=== PATIENT | male | born 1985 | race African-American/Black ===

== ENCOUNTER 2017-05-13 14:28 | Emergency (ER) | payer OTHER ==
[~2017-05-13] VITALS: Ht 170.2 cm; Wt 113.4 kg
[~2017-05-13 14:28] MED LIST: BUTALB-APAP-CA1 EACH PO; NEXIUM40 MG PO; NORVASC5 MG PO
[2017-05-13 15:16] LABS: ABSOLUTE NEUTROPHILS 6.8 thou/uL (1.4-8.2); BASOPHILS 0.5 % (0.0-2.0); EOSINOPHILS 3.6 % (0.0-3.0); HEMATOCRIT 45.3 % (42.0-52.0); HEMOGLOBIN 15.1 gm/dL (14.0-18.0); LYMPHOCYTES 24.5 % (24.0-44.0); MCH 28.9 pg (26.0-34.0); MCHC 33.4 g/dL (28.0-37.0); MCV 86.5 fL (80.0-100.0); MONOCYTES 6.6 % (1.0-8.0); PLATELET COUNT 339 thou/uL (150-400); POLYS 64.8 % (36.0-66.0); RBC 5.23 mil/uL (4.50-6.00); RDW 14.3 % (10.5-14.5); WBC 10.4 thou/uL (4.0-11.0)
[2017-05-13 15:18] LABS: MANUAL DIFF NO
[2017-05-13 15:29] LABS: CALCIUM 8.8 mg/dL (8.5-10.1); CREATININE 1.4 mg/dL (0.7-1.3); POTASSIUM 3.6 mmol/L (3.5-5.1)
[2017-05-13 15:35] LABS: URINE BILIRUBIN NEGATIVE (Negative); URINE BLOOD NEGATIVE (Negative); URINE COLOR YELLOW; URINE GLUCOSE-RANDOM* NEGATIVE (Negative); URINE KETONES NEGATIVE (Negative); URINE NITRITE NEGATIVE (Negative); URINE PROTEIN (DIPSTICK) NEGATIVE (Negative); URINE SPECIFIC GRAVITY 1.015 (1.003-1.035); URINE UROBILINOGEN 0.2 E.U./dl (0.2-1.0)
[2017-05-13] MEDS ORDERED: NAPROSYN500 MG PO (19:26)
[2017-05-13] MEDS ORDERED: TIZANIDINE HCL4 MG PO (19:26)
[2017-05-13 19:35] VITALS: BP 149/74
== END 2017-05-13 19:37 | disposition home or self-care (01) ==
LOC: ER 14:28
PROVIDERS: Nurse Practitioner
DX: S39.011A Strain of muscle, fascia and tendon of abdomen, initial encounter (principal); I10 Essential (primary) hypertension; K21.9 Gastro-esophageal reflux disease without esophagitis; Z98.890 Other specified postprocedural states; X58.XXXA Exposure to other specified factors, initial encounter; Y93.89 Activity, other specified; Y92.89 Other specified places as the place of occurrence of the external cause; Y99.8 Other external cause status

== ENCOUNTER 2018-08-04 15:55 | Emergency (ER) | payer OTHER ==
[~2018-08-04] VITALS: Ht 167.6 cm; Wt 117.9 kg
[~2018-08-04 15:55] MED LIST changes: +NAPROSYN500 MG PO; +TIZANIDINE HCL4 MG PO
[2018-08-04] MEDS ORDERED: MOBIC7.5 MG PO (17:01)
== END 2018-08-04 17:10 | disposition home or self-care (01) ==
LOC: ER 15:55
DX: S13.9XXA Sprain of joints and ligaments of unspecified parts of neck, initial encounter (principal); S09.90XA Unspecified injury of head, initial encounter; Y04.2XXA Assault by strike against or bumped into by another person, initial encounter; Y93.89 Activity, other specified; Y92.89 Other specified places as the place of occurrence of the external cause; Y99.8 Other external cause status; I10 Essential (primary) hypertension; K21.9 Gastro-esophageal reflux disease without esophagitis